=== PATIENT | male | born 1935 | race Caucasian/White ===

== ENCOUNTER → 2020-03-23 | Outpatient (CLI) | payer MEDICARE ==
--- NOTE | 2020-03-23 13:02 | Diagnostic Imaging Report ---
TECHNIQUE: Magnetic resonance imaging of the RIGHT HIP was performed WITHOUT injected contrast. HISTORY: Right hip pain COMPARISON: None available. FINDINGS: Bone: No fracture. Subchondral edema in the right femoral head. 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 Femoroacetabular Joint: Joint effusion with synovitis. Acetabular labrum: Degenerative complex tearing of the superior labrum. Articular Cartilage: Areas of full-thickness cartilage loss. Muscle and tendons: The gluteal tendon insertions are intact. The iliopsoas tendon insertion intact. Tendinopathy of the proximal hamstring origin. Soft tissues: Otherwise unremarkable. 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 Proximal hamstring tendinopathy. Signed by: Dr. Zack Elliott M.D. on 03/23/2020 12:58 PM
== END ==
LOC: MRI 10:35
PROVIDERS: ATTEND Family Medicine
DX: M25.551 Pain in right hip (principal)

== ENCOUNTER → 2022-05-16 | Outpatient (CLI) | payer MEDICARE | LOC: MRI 10:28 | PROVIDERS: ATTEND Family Medicine | DX: M25.511 Pain in right shoulder (principal); S46.911D Strain of unspecified muscle, fascia and tendon at shoulder and upper arm level, right arm, subsequent encounter ==

== ENCOUNTER → 2022-05-24 | Outpatient (CLI) | payer MEDICARE | LOC: MRI 08:45 | PROVIDERS: ATTEND Family Medicine | DX: S29.019A Strain of muscle and tendon of unspecified wall of thorax, initial encounter (principal) | CPT/HCPCS: 72146 ==

== ENCOUNTER → 2024-06-29 | Outpatient (REF) | payer MEDICARE | LOC: CT 14:45 | PROVIDERS: ATTEND Family Medicine | DX: R06.02 Shortness of breath (principal); J18.9 Pneumonia, unspecified organism; N18.4 Chronic kidney disease, stage 4 (severe); U09.9 Post COVID-19 condition, unspecified; R93.89 Abnormal findings on diagnostic imaging of other specified body structures | CPT/HCPCS: 71250 ==